=== PATIENT | female | born 1985 | race Caucasian/White ===

== ENCOUNTER 2018-01-19 17:57 | Emergency (ER) | payer OTHER ==
[2018-01-19] MEDS ORDERED: Metoclopramide HCl 10 MG/2 ML VIAL ONE (18:33)
[2018-01-19] MEDS ORDERED: Acetaminophen 325 MG TAB ONE (18:33)
[2018-01-19] MEDS ORDERED: diphenhydrAMINE 50 MG/ML VIAL ONE (18:33)
[2018-01-19 18:49] LABS: #Basophils 0.1 thou/uL (0.0-0.2); #Eosinphils 0.4 thou/uL (0.0-0.7); #Lymphocytes 4.6 thou/uL (1.20-3.40); #Monocytes 0.9 thou/uL (0.11-0.59); #Neutrophils 8.6 thou/uL (1.40-6.50); %Basophils 0.8 % (0.0-1.0); %Eosinophils 2.9 % (0.0-10.0); %Lymphocytes 31.2 % (21.0-51.0); %Monocytes 6.2 % (0.0-10.0); %Neutrophils 58.9 % (42.0-75.0); Hemoglobin 14.3 g/dL (12.0-16.0); Mean Corpuscular HGB CONC 34.8 g/dL (32.0-36.0); Mean Corpuscular Hemoglobin 28.9 pg (27.0-31.0); Mean Corpuscular Volume 82.9 fL (78.0-98.0); Platelet Count 292 thou/uL (130-400); Red Blood Cell (RBC) Count 4.94 mill/uL (4.20-5.40); White Blood Cell (WBC) Count 14.7 thou/uL (4.8-10.8)
[2018-01-19 18:50] LABS: BHCG - Serum Negative (NEGATIVE); Pregs Control Background? CLEAR/WHITE (CLR/WHITE); Pregs Control Bar Appear? YES (CONTROL BAR)
[2018-01-19 18:54] LABS: Anion Gap 12 mmol/L (10-20); BUN (Urea Nitrogen) 9 mg/dL (7.0-18.7); Calc. Creatinine Clearance 0 mL/min (70-130); Carbon Dioxide 29 mmol/L (22-29); Chloride 103 mmol/L (98-107); Estimated GFR-MDRD Greater than 90; Glucose 82 mg/dL (70-105); Potassium 3.1 mmol/L (3.5-5.1); Sodium 141 mmol/L (136-145)
== END 2018-01-19 21:20 | disposition home or self-care (01) ==
LOC: SCSER 17:57
DX: R56.9 Unspecified convulsions (principal); R51 Headache; J45.909 Unspecified asthma, uncomplicated
CPT/HCPCS: 80048; 84703; 85025; 96361; 96365; 96375; J1200; J2765

== ENCOUNTER 2018-02-16 09:52 | Outpatient (CLI) | payer OTHER | END 2018-02-16 09:53 | disposition home or self-care (01) | LOC: BICCT 09:52 | PROVIDERS: ATTEND Family Medicine | DX: G40.909 Epilepsy, unspecified, not intractable, without status epilepticus (principal) | CPT/HCPCS: 70470 ==

== ENCOUNTER 2018-02-18 12:13 | Emergency (ER) | payer OTHER ==
[2018-02-18] MEDS ORDERED: Ketorolac Tromethamine 60 MG/2 ML VIAL ONE (13:15)
--- NOTE | 2018-02-18 15:04 | RAD ---
RIGHT KNEE 4 VIEWS: History Fall, right knee pain. FINDINGS: No acute fracture or dislocation is seen. No joint effusion is identified. POS: [facility]
== END 2018-02-18 13:36 | disposition home or self-care (01) ==
LOC: ERS 12:13
DX: M25.561 Pain in right knee (principal); G40.909 Epilepsy, unspecified, not intractable, without status epilepticus; G43.909 Migraine, unspecified, not intractable, without status migrainosus; J45.909 Unspecified asthma, uncomplicated; F41.9 Anxiety disorder, unspecified; F90.9 Attention-deficit hyperactivity disorder, unspecified type; Z79.899 Other long term (current) drug therapy; W18.30XA Fall on same level, unspecified, initial encounter; Y92.512 Supermarket, store or market as the place of occurrence of the external cause
CPT/HCPCS: 96372; J1885